=== PATIENT | male | born 1985 | race American Indian/Alaskan Native ===

== ENCOUNTER 2017-05-09 17:15 | Emergency (ER) | payer MEDICAID ==
[2017-05-09] MEDS ORDERED: Ketorolac 60 MG/2 ML SDV IM ONE (18:11)
--- NOTE | 2017-05-09 18:16 | EDM.PDOC ---
ED HPI GENERAL MEDICAL PROBLEM - General Chief Complaint: ENT Problem Stated Complaint: SWOLLEN GUMS Time Seen by Provider: 05/09/17 17:58 Source of Information: Reports: Patient, RN Notes Reviewed History Limitations: Reports: No Limitations - History of Present Illness INITIAL COMMENTS - FREE TEXT/NARRATIVE: 31-year-old gentleman presents emergency department day complaint of, and dental pain, he states this particular swelling started over his gum 3 days prior he has been hot and cold does not had any fevers pain is so intense that is difficult for him to eat and drink he does have a fractured tooth that is been there for several years never given him any troubles Left Upper Gums Pain Score (Numeric/FACES): 9 - Related Data Allergies Allergy/AdvReac Type Severity Reaction Status Date / Time Penicillins Allergy Cannot Verified 05/09/17 17:56 Remember Home Meds: Home Meds Nebivolol [Bystolic] 10 mg PO DAILY 11/05/13 [History] traMADol [Ultram] 50 mg PO QID 11/05/13 [History] Gabapentin [Gabapentin] 300 mg PO TID 01/21/14 [History] Allopurinol [Zyloprim] 100 mg PO BID 05/09/17 [History] Etodolac [Etodolac] 500 mg PO TID 05/09/17 [History] Lisinopril [Lisinopril] 40 mg PO DAILY 05/09/17 [History] Past Medical History Cardiovascular History: Reports: Hypertension Gastrointestinal History: Reports: Irritable Bowel Syndrome Musculoskeletal History: Reports: Fracture - Infectious Disease History Infectious Disease History: Reports: Chicken Pox Social & Family History - Tobacco Use Smoking Status *Q: Never Smoker Second Hand Smoke Exposure: No - Caffeine Use Caffeine Use: Reports: None - Alcohol Use Days Per Week of Alcohol Use: 1 Number of Drinks Per Day: 6 Total Drinks Per Week: 6 - Recreational Drug Use Recreational Drug Use: No ED ROS ENT - Review of Systems Review Of Systems: See Below Constitutional: Reports: Fever, Chills HEENT: Reports: Dental Pain Respiratory: Reports: No Symptoms Cardiovascular: Reports: No Symptoms GI/Abdominal: Reports: No Symptoms : Reports: No Symptoms ED EXAM, ENT - Physical Exam Exam: See Below Text/Narrative:: Examination of the mouth mucosa is moist and pink E does have edema and abscess formation over tooth #15, tooth #15 is broken at the gumline it is tender to the touch, no erythema or state noted in soft palate tongue is midline uvula is midline Exam Limited By: No Limitations General Appearance: Alert, WD/WN, No Apparent Distress Head: Atraumatic, Normocephalic Neck: Normal Inspection, Supple, Non-Tender, Full Range of Motion Respiratory/Chest: No Respiratory Distress, Lungs Clear, Normal Breath Sounds, No Accessory Muscle Use Cardiovascular: Regular Rate, Rhythm, No Murmur Course - Vital Signs Last Recorded V/S: Last Vital Signs Temp 97.7 F 05/09/17 17:59 Pulse 69 05/09/17 17:59 Resp 17 05/09/17 17:59 BP 155/92 H 05/09/17 17:59 Pulse Ox 98 05/09/17 17:59 - Orders/Labs/Meds Meds: Medications Discontinued Medications Generic Name Dose Route Start Last Admin Trade Name Micahq PRN Reason Stop Dose Admin Ketorolac Tromethamine 60 mg 05/09/17 18:11 Toradol IM 05/09/17 18:12 ONETIME ONE Departure - Departure Time of Disposition: 18:16 Disposition: Home, Self-Care 01 Condition: Good Clinical Impression: Dental abscess - Discharge Information Referrals: Maame Freeman MD [Primary Care Provider] - Additional Instructions: Take full course of antibiotics, use hydrocodone as needed for pain control, please follow-up with dentistry as soon as possible, call return to the emergency department worsening of symptoms - Assessment/Plan Plan: Assessment Acuity = acute Site and laterality = dental abscess tooth #15 Etiology = bacterial cause and fractured tooth Manifestations = pain, fever Location of injury = Home Lab values = none Plan Unfortunately he has [facility], I did place him on Augmentin 875 by mouth twice a day 10 days in combination with hydrocodone 5/325 one tab by mouth 3 times a day when necessary total #10 of asked him to follow-up with dentistry as soon as possible Patient was in agreement with the plan all questions were answered, they were instructed to return to the emergency department or call for worsening symptoms. This note was dictated using pic5 voice recognition software please call with any questions.
== END 2017-05-09 18:35 | disposition home or self-care (01) ==
LOC: JP.ED 17:15
DX: K04.7 Periapical abscess without sinus (principal); I10 Essential (primary) hypertension; Z88.0 Allergy status to penicillin; Z79.899 Other long term (current) drug therapy
CPT/HCPCS: 96372; 99283; J1885

== ENCOUNTER 2017-12-04 17:29 | Emergency (ER) | payer MEDICAID ==
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
== END 2017-12-04 18:58 | disposition home or self-care (01) ==
LOC: JP.ED 17:29
DX: M94.0 Chondrocostal junction syndrome [Tietze] (principal); V89.2XXA Person injured in unspecified motor-vehicle accident, traffic, initial encounter; I10 Essential (primary) hypertension; Z79.899 Other long term (current) drug therapy; Z88.0 Allergy status to penicillin
CPT/HCPCS: 99283

== ENCOUNTER 2018-02-01 17:15 | Emergency (ER) | payer MEDICAID ==
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
== END 2018-02-01 19:09 | disposition home or self-care (01) ==
LOC: JP.ED 17:15
DX: M10.071 Idiopathic gout, right ankle and foot (principal); I10 Essential (primary) hypertension; Z79.899 Other long term (current) drug therapy; Z88.0 Allergy status to penicillin
CPT/HCPCS: 99283

== ENCOUNTER 2021-01-31 18:25 | Emergency (ER) | payer MEDICAID ==
--- NOTE | 2021-01-31 18:45 | EDM.PDOC ---
ED HPI GENERAL MEDICAL PROBLEM - General Chief Complaint: Neuro Symptoms/Deficits Stated Complaint: HYPERTENSION Time Seen by Provider: 01/31/21 18:27 Source of Information: Reports: Patient, EMS History Limitations: Reports: No Limitations - History of Present Illness INITIAL COMMENTS - FREE TEXT/NARRATIVE: Chitra is a 35-year-old male presenting to the ED via [facility] for evaluation of acute onset of left dorsal hand and left dorsal foot numbness accompanied by tachycardia, nausea and vomiting. Patient has a past medical history significant for opiate dependence, drug-seeking behavior, essential hypertension, orbit obesity, hyperglycemia, myofascial pain syndrome, bilateral sciatica, and cervical degenerative disc disease with radiculopathy. The patient was being followed by Saige Weldon in the [facility] clinic, but has not been seen by her since 12/06/2019. He reportedly stopped taking all his antihypertensives including amlodipine, lisinopril, and metoprolol 3 months ago when he could no longer get them refilled. He has not establish care with a new provider since Saige left the clinic. Patient denies any previous history of stroke, however, his mother who was recently diagnosed with diabetes also recently had a small stroke. The patient initially thought that his symptoms were related to drinking vodka and Pepsi yesterday. The patient does reportedly drink twice a week but denies that it is to the extreme. He denies any illicit drug use. Reviewing the patient's notes it also appears that he had been on gabapentin for his pain control, however, it is unclear whether he continues to take that now or not. 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 He denies any weakness or difficulty walking. He denies any chest pain or shortness of breath. He has had nausea and vomiting. EMS gave him 4 mg of Zofran IV in route. His blood glucose was 155 per EMS. - Related Data Allergies Allergy/AdvReac Type Severity Reaction Status Date / Time Penicillins Allergy Cannot Verified 01/31/21 18:38 Remember Home Meds: Home Meds Gabapentin 300 mg PO TID 01/21/14 [History] Lisinopril 40 mg PO DAILY 05/09/17 [History] Metoprolol Tartrate 100 mg PO BID 12/04/17 [History] amLODIPine Besylate [Amlodipine Besylate] 10 mg PO DAILY 12/04/17 [History] Metoprolol Succinate [Toprol XL 100mg] 100 mg PO DAILY 30 Days #30 tab.er 01/31/21 [Rx] amLODIPine [Norvasc] 10 mg PO DAILY 30 Days #60 tab 01/31/21 [Rx] lisinopriL [Lisinopril] 40 mg PO DAILY 30 Days #30 tablet 01/31/21 [Rx] Past Medical History Cardiovascular History: Reports: Hypertension Gastrointestinal History: Reports: Irritable Bowel Syndrome Musculoskeletal History: Reports: Fracture - Infectious Disease History Infectious Disease History: Reports: Chicken Pox Social & Family History - Caffeine Use Caffeine Use: Reports: None, Soda ED ROS GENERAL - Review of Systems Review Of Systems: See Below Constitutional: Reports: No Symptoms HEENT: Reports: No Symptoms, Other (Blind in the left eye) Respiratory: Reports: No Symptoms Cardiovascular: Reports: Palpitations (Tachycardia) Endocrine: Reports: High Glucose (155 mg/dL by EMS) GI/Abdominal: Reports: Nausea, Vomiting : Reports: No Symptoms Musculoskeletal: Reports: Neck Pain (Chronic), Back Pain (Chronic) Skin: Reports: No Symptoms Neurological: Reports: Numbness (Dorsal left hand and dorsal left foot) Psychiatric: Reports: No Symptoms Hematologic/Lymphatic: Reports: No Symptoms Immunologic: Reports: No Symptoms ED EXAM, NEURO - Physical Exam Exam: See Below Exam Limited By: No Limitations General Appearance: Alert, No Apparent Distress, Obese (Orbitally obese with a BMI of 43.3) Eye Exam: Right Eye: EOMI, PERRL (Left eye is blind) Throat/Mouth: Normal Inspection, Normal Lips, Normal Oropharynx, Normal Voice, No Airway Compromise Head Exam: Atraumatic, Normocephalic Neck: Normal Inspection, Supple, Non-Tender, Full Range of Motion Respiratory/Chest: No Respiratory Distress, Lungs Clear, Normal Breath Sounds Cardiovascular: Normal Peripheral Pulses, Regular Rate, Rhythm, No Murmur, Tachycardia GI/Abdominal: Normal Bowel Sounds, Soft, Non-Tender Neurological: Alert, Normal Mood/Affect, Normal Dorsiflexion, CN II-XII Intact, Normal Plantar Flexion, No Motor/Sensory Deficits, Oriented x 3 Back Exam: Normal Inspection, Full Range of Motion Extremities: Normal Inspection, Normal Range of Motion Psychiatric: Normal Affect, Normal Mood Skin Exam: Warm, Dry #1 Interpretation EKG Date: 01/31/21 Time: 18:35 Rhythm: NSR Rate (Beats/Min): 105 [place]: RAD-Right [place] Deviation P-Wave: Present QRS: 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 LVH by voltage criteria. RVH by voltage criteria.) ST-T: Normal QT: Prolonged Comparison: NA - No Prior EKG Course - Vital Signs Last Recorded V/S: Last Vital Signs Temp 36.7 C 01/31/21 18:36 Pulse 131 H 01/31/21 19:20 Resp 20 01/31/21 19:20 BP 179/119 H 01/31/21 19:20 Pulse Ox 93 L 01/31/21 19:20 - Orders/Labs/Meds Orders: Active Orders 24 hr Category Date Time Status EKG Documentation Completion [RC] ASDIRECTED Care 01/31/21 18:29 Active Head wo Cont [CT] Stat Exams 01/31/21 18:28 Ordered EKG 12 Lead [EK] Routine Ther 01/31/21 18:28 Ordered Labs: Laboratory Tests 01/31/21 01/31/21 01/31/21 Range/Units 18:43 18:43 18:43 WBC 10.1 (4.5-11.0) K/uL RBC 5.37 (4.30-5.90) M/uL Hgb 16.7 H (12.0-15.0) g/dL Hct 49.1 (40.0-54.0) % MCV 91 (80-98) fL MCH 31 (27-31) pg MCHC 34 (32-36) % Plt Count 297 (150-400) K/uL Neut % (Auto) 84.1 H (36-66) % Lymph % (Auto) 8.2 L (24-44) % Lynn % (Auto) 7.1 H (2-6) % Eos % (Auto) 0.2 L (2-4) % Baso % (Auto) 0.4 (0-1) % PT 11.0 (9.5-12.0) sec INR 1.01 (0.80-1.20) APTT 27.5 (27.0-36.0) sec Sodium 145 (140-148) mmol/L Potassium 3.9 (3.6-5.2) mmol/L Chloride 104 (100-108) mmol/L Carbon Dioxide 27 (21-32) mmol/L Anion Gap 14.1 H (5.0-14.0) mmol/L BUN 5 L (7-18) mg/dL Creatinine 0.9 (0.8-1.3) mg/dL Est Cr Clr Drug Dosing 123.35 mL/min Estimated GFR (MDRD) > 60 (>60) Glucose 144 H (74-106) mg/dL Calcium 8.6 (8.5-10.1) mg/dL Total Bilirubin 0.9 (0.2-1.0) mg/dL AST 55 H (15-37) U/L ALT 61 (12-78) U/L Alkaline Phosphatase 88 (46-116) U/L Troponin I < 0.017 (0.000-0.056) ng/mL C-Reactive Protein 1.98 H (0.0-0.3) mg/dL Total Protein 7.6 (6.4-8.2) g/dL Albumin 3.2 L (3.4-5.0) g/dL Globulin 4.4 H (2.3-3.5) g/dL Albumin/Globulin Ratio 0.7 L (1.2-2.2) Meds: Medications Discontinued Medications Generic Name Dose Route Start Last Admin Trade Name Freq PRN Reason Stop Dose Admin Amlodipine Besylate 5 mg 01/31/21 18:53 01/31/21 19:13 Amlodipine 5 Mg Tab PO 01/31/21 18:54 5 mg ONETIME ONE Administration Lisinopril 20 mg 01/31/21 18:53 01/31/21 19:14 Lisinopril 20 Mg Tab PO 01/31/21 18:54 Not Given ONETIME STA Lisinopril 20 mg 01/31/21 19:12 01/31/21 19:13 Lisinopril 10 Mg Tab PO 01/31/21 19:13 20 mg ONETIME ONE Administration Lisinopril Confirm 01/31/21 19:11 01/31/21 19:15 Lisinopril 10 Mg Tab Administered 01/31/21 19:12 Not Given Dose 20 mg .ROUTE .STK-MED ONE Metoprolol Succinate 50 mg 01/31/21 18:53 01/31/21 19:13 Metoprolol Succinate 50 Mg Tab.Er PO 01/31/21 18:54 50 mg ONETIME ONE Administration - Re-Assessments/Exams Free Text/Narrative Re-Assessment/Exam: 01/31/21 19:30 the patient's NIH stroke score is 0. For the most part, his symptoms resolved on his ride in by ambulance from [place]. I reviewed the patient's labs with a CBC showing a leukocyte count of 10.1 with a left shift, hemoglobin of 16.7, hematocrit of 49.1, and platelet count of 297,000. His comprehensive metabolic panel is significant for sodium 145, potassium 3.9, chloride of 104, bicarbonate of 27, BUN of 5 with a creatinine of 0.9. The patient's glucose is 144 which is elevated higher than expected since he reportedly had his last intake of food 11 PM last night in the a can of [employer] this morning. I suspect that the patient is diabetic type II with insulin resistance. The patient's PTT is 27.5. His PT is 11.0 with an INR of 1.01. His LFTs are normal with a AST of 55 and an ALT of 61. His troponin is negative at less than 0.017 and his C-reactive protein is mildly elevated at 1.98. Patient underwent a CT of the head without contrast demonstrating no acute findings for stroke. While in the ED, the patient's blood pressure shot up to 188/120. He was given metoprolol 50 mg p.o., lisinopril 20 mg p.o., and amlodipine 5 mg p.o. with his pressure improving to 160/114. 01/31/21 19:51 Tums have completely gone away at this time. I am concerned of 2 things one that he presented with hypertensive urgency and we need to get his blood pressure back under control and keep it there into that he is diabetic and not yet started on any medication. I do not have the ability to get a hemoglobin A1c tonight, nor do I think we should start Metformin without attaining a hemoglobin A1c to see what his cause has been running over the last 90 days. I would like him to follow-up in the [facility] clinic on Wednesday to establish care. I am prescribing him medication for the next month for his hypertension but he needs to establish care to continue this. New medications include metoprolol XR 100 mg daily, lisinopril 40 mg daily, and amlodipine 10 mg daily. The goal of his blood pressure is 130/80. And confident that we will be able to achieve this. At this time, I believe the patient is suitable for discharge home. Indications return to the ED were discussed and all questions were answered prior to discharge. Departure - Departure Time of Disposition: 19:54 Disposition: Home, Self-Care 01 Clinical Impression: Hypertensive urgency Diabetes type 2, uncontrolled Qualifiers: Glycemic state: with hyperglycemia Qualified Code(s): E11.65 - Type 2 diabetes mellitus with hyperglycemia - Discharge Information Instructions: Managing Your Hypertension, Hypertension, Adult, [id number] Referrals: PCP,None [Primary Care Provider] - Forms: ED Department Discharge Care Plan Goals: I have put through a consult for you to see a new provider in the clinic early next week. You can discuss whether or not to start medication for diabetes at that time. We desperately need to get your blood pressure under control before you have significant end organ damage including the heart, kidneys, brain and blood vessels. I have prescribed medications for you to fill in the morning which are once daily to get your blood pressure back under better control. Re turn to the ED should you have any significant neurologic changes including new onset of weakness, numbness or tingling, or vision changes. Sepsis Event Note (ED) - Focused Exam Vital Signs: Vital Signs Temp Pulse Pulse Resp BP BP Pulse Ox 01/31/21 19:20 131 H 20 179/119 H 93 L 01/31/21 19:13 117 H 179/119 H 01/31/21 18:36 36.7 C 114 H 20 188/120 H 94 L - Problem List & Annotations (1) Diabetes type 2, uncontrolled SNOMED Code(s): 224862086, 853302032 Code(s): E11.65 - TYPE 2 DIABETES MELLITUS WITH HYPERGLYCEMIA Status: Acute Priority: Medium Current Visit: Yes Qualifiers: Glycemic state: with hyperglycemia Qualified Code(s): E11.65 - Type 2 diabetes mellitus with hyperglycemia (2) Hypertensive urgency SNOMED Code(s): 788686366 Code(s): I16.0 - HYPERTENSIVE URGENCY Status: Acute Priority: High Current Visit: Yes - Problem List Review Problem List Initiated/Reviewed/Updated: Yes - My Orders Last 24 Hours: My Active Orders 01/31/21 18:28 Head wo Cont [CT] Stat EKG 12 Lead [EK] Routine 01/31/21 18:29 EKG Documentation Completion [RC] ASDIRECTED - Assessment/Plan Last 24 Hours: My Active Orders 01/31/21 18:28 Head wo Cont [CT] Stat EKG 12 Lead [EK] Routine 01/31/21 18:29 EKG Documentation Completion [RC] ASDIRECTED
[2021-01-31] MEDS ORDERED: Lisinopril 20 MG Tab PO STA (18:53)
[2021-01-31] MEDS ORDERED: Metoprolol Succinate 50 MG Tab.ER PO ONE ×2 (18:53→20:01)
[2021-01-31] MEDS ORDERED: amLODIPine 5 MG Tab PO ONE (18:53)
[2021-01-31] MEDS ORDERED: Lisinopril 10 MG Tab ONE (19:11)
[2021-01-31] MEDS ORDERED: Lisinopril 10 MG Tab PO ONE (19:12)
--- NOTE | 2021-01-31 20:11 | CRLCT ---
For Patients: As a result of the Century Cures Act, medical imaging exams and procedure reports are released immediately into your electronic medical record. You may view this report before your referring provider. If you have questions, please contact your health care provider. INDICATION: Left hand and foot numbness TECHNIQUE: Head CT without contrast. COMPARISON: None FINDINGS: CSF spaces: Within normal limits for age. Brain parenchyma: Normal castillo-white junction. No sign of mass, hemorrhage, or midline shift. Skull base and calvarium: The visualized paranasal sinuses and mastoid air cells demonstrate no acute or significant findings. The visualized orbits are grossly unremarkable. No skull fractures. IMPRESSION: No acute abnormality. Please note that all CT scans at this facility use dose modulation, iterative reconstruction, and/or weight-based dosing when appropriate to reduce radiation dose to as low as reasonably achievable. Dictated by Madyson Larios MD @ 01/31/2021 8:09:[address] Madyson Larios @ Jan 31 2021 8:09PM
== END 2021-01-31 20:16 | disposition home or self-care (01) ==
LOC: JP.ED 18:25
DX: I16.0 Hypertensive urgency (principal); E11.65 Type 2 diabetes mellitus with hyperglycemia; I45.10 Unspecified right bundle-branch block; E66.9 Obesity, unspecified; Z68.41 Body mass index [BMI] 40.0-44.9, adult; Z88.0 Allergy status to penicillin; Z79.899 Other long term (current) drug therapy
CPT/HCPCS: 36415; 70450; 80053; 84484; 85025; 85610; 85730; 86140; 93005; 99285; A9270

== ENCOUNTER 2022-06-18 14:30 | Emergency (ER) | payer MEDICAID ==
[2022-06-18] MEDS ORDERED: Diazepam 5 MG Tab PO ONE (14:47)
[2022-06-18] MEDS ORDERED: Prochlorperazine 10 MG Tab PO ONE (14:47)
[2022-06-18 15:37] LABS: ESTIMATED GFR 88 mL/min (>60); TROPONIN I HIGH SENSITIVITY 5.5 pg/mL (<=60.3)
[2022-06-18] MEDS ORDERED: Potassium Chloride 20 MEQ Tab.ER PO ONE (16:37)
== END 2022-06-18 17:07 | disposition home or self-care (01) ==
LOC: JP.ED 14:30
DX: F41.0 Panic disorder [episodic paroxysmal anxiety] (principal); E87.6 Hypokalemia; I45.2 Bifascicular block; R94.31 Abnormal electrocardiogram [ECG] [EKG]; I10 Essential (primary) hypertension; Z88.0 Allergy status to penicillin; Z79.899 Other long term (current) drug therapy
CPT/HCPCS: 36415; 80053; 80305; 80307; 84443; 84484; 85025; 93005; 99284; A9270; Q0164

== ENCOUNTER 2023-02-15 11:38 | Emergency (ER) | payer MEDICAID | END 2023-02-15 12:23 | disposition home or self-care (01) | LOC: EEVIPCON 11:38 → JP.ED 11:38 | DX: M10.071 Idiopathic gout, right ankle and foot (principal); I10 Essential (primary) hypertension; E11.9 Type 2 diabetes mellitus without complications; Z88.0 Allergy status to penicillin; Z79.899 Other long term (current) drug therapy | CPT/HCPCS: 99283 ==